=== PATIENT | male | born 1995 | race Caucasian/White ===

== ENCOUNTER 2017-06-25 18:01 | Emergency (ER) | payer OTHER ==
[~2017-06-25] VITALS: Ht 170.2 cm; Wt 68.0 kg
[2017-06-25 19:44] VITALS: BP 145/51
== END 2017-06-25 19:44 | disposition home or self-care (01) ==
LOC: ED 18:01
DX: S52.602A Unspecified fracture of lower end of left ulna, initial encounter for closed fracture (principal); V43.92XA Unspecified car occupant injured in collision with other type car in traffic accident, initial encounter; Y93.89 Activity, other specified; Y92.89 Other specified places as the place of occurrence of the external cause; Y99.8 Other external cause status
CPT/HCPCS: Q0092